=== PATIENT | male | born 1980 | race Caucasian/White ===

== ENCOUNTER 2016-03-06 15:30 | Emergency (ER) | payer SELFPAY ==
[2016-03-06] MEDS ORDERED: PROPARACAINE 0.5% OPHTH DROPS 15 ML ONE (16:37)
[2016-03-06] MEDS ORDERED: ERYTHROMYCIN OPHTH OINT 1 GM TUBE ONE (16:56)
[2016-03-06] MEDS ORDERED: PROPARACAINE 0.5% OPHTH DROPS 15 ML RIGHTEYE STA (17:00)
[2016-03-06] MEDS ORDERED: ERYTHROMYCIN OPHTH OINT 1 GM TUBE RIGHTEYE STA (17:01)
== END 2016-03-06 17:10 | disposition home or self-care (01) ==
DX: S05.01XA Injury of conjunctiva and corneal abrasion without foreign body, right eye, initial encounter (principal); X58.XXXA Exposure to other specified factors, initial encounter; F17.200 Nicotine dependence, unspecified, uncomplicated
CPT/HCPCS: 99283; J3490

== ENCOUNTER 2018-10-21 13:13 | Emergency (ER) | payer MEDICAID ==
[2018-10-21 13:28] VITALS: BP 127/97
--- NOTE | 2018-10-21 13:37 | ED Physician Documentation ---
PD HPI LOWER EXT INJURY - Stated complaint Stated Complaint: R ANKLE INJURY - Chief complaint Chief Complaint: Ext Problem - History obtained from History obtained from: Patient, Family - History of Present Illness PD HPI LOW EXT INJURY LOCATION: Right, Ankle Type of injury: Fall Where injury occurred: Home Timing - onset: Today Timing - duration: Minutes Timing - details: Abrupt onset, Still present Improved by: Rest, Ice, Immobilization Worsened by: Moving, Palpating Associated symptoms: Swelling. No: Weakness, Numbness Contributing factors: No: Anticoagulated Similar symptoms before: Has not had sx before Recently seen: Not recently seen - Additional information Additional information: 38 y/o male was up on a ladder about 5 feet when he fell landing on and twisting his right ankle. He has pain and swelling laterally and is unable to bear weight. Review of Systems Constitutional: denies: Fever Nose: denies: Congestion Respiratory: denies: Cough GI: denies: Vomiting PD PAST MEDICAL HISTORY - Past Surgical History Past Surgical History: No - Present Medications Home Medications: Ambulatory Orders Medication Instructions Recorded Confirmed HYDROcod/ACETAM 5/325 [[place] 5/325] 1 - 2 ea PO Q6H PRN #15 tablet 03/06/16 - Allergies Allergies/Adverse Reactions: Allergies Allergy/AdvReac Type Severity Reaction Status Date / Time No Known Drug Allergies Allergy Verified 03/06/16 15:49 - Social History Does the pt smoke?: Yes Smoking Status: Current every day smoker Does the pt drink ETOH?: No Does the pt have substance abuse?: No - Immunizations Immunizations are current?: Yes PD ED PE NORMAL - Vitals Vital signs reviewed: Yes (hypertensive) - General General: Alert and oriented X 3, No acute distress, Well developed/nourished - HEENT HEENT: Atraumatic, PERRL, EOMI - Respiratory Respiratory: No respiratory distress - Derm Derm: Normal color, Warm and dry, No rash - Extremities Extremities: Other (There is marked swelling to the lateral right ankle. There is swelling over the talofibular ligament there is no pain over the proximal fifth metatarsal or over the dorsal foot. Distal neurovascular components are intact and there is not much swelling or tenderness to the medial malleolus. There is no tenderness higher up on the fibula and no tenderness to the knee.) - Neuro Neuro: Alert and oriented X 3, management expert 2-12 intact, No motor deficit, No sensory deficit, Normal speech Eye Opening: Spontaneous Motor: Obeys Commands Verbal: Oriented GCS Score: 15 - Psych Psych: Normal mood, Normal affect Results - Vitals Vitals: Vital Signs - 24 hr 10/21/18 13:27 Temperature 36.3 C L Heart Rate 79 Respiratory 18 Rate Blood Pressure 127/97 H O2 Saturation 100 Oxygen O2 Source Room air PD MEDICAL DECISION MAKING - ED course Complexity details: reviewed results, re-evaluated patient, considered differential, d/w patient, d/w family ED course: 38 y/o male with a lot of swelling with an ankle sprain. He is placed into an ankle air cast and onto crutches. Departure - Departure Disposition: 01 Home, Self Care Clinical Impression: Right ankle sprain Qualifiers: Encounter type: initial encounter Involved ligament of ankle: calcaneofibular ligament Qualified Code(s): S93.411A - Sprain of calcaneofibular ligament of right ankle, initial encounter Condition: Stable Instructions: ED Sprain Ankle W X Ray Follow-Up: [facility] [Provider Group]
--- NOTE | 2018-10-21 14:10 | XRAY Report ---
Reason: r ankle pain, swelling, s/p fall Procedure Date: 10/21/2018 Accession Number: [id number] / [id number] Procedure: XR - Ankle 3 View RT CPT Code: FULL RESULT: EXAM: RIGHT ANKLE RADIOGRAPHY EXAM DATE: 10/21/2018 01:42 PM. CLINICAL HISTORY: Trauma with ankle pain. COMPARISON: None. TECHNIQUE: 3 views. FINDINGS: Bones: No acute fracture or suspicious osseous lesion. Joints: No significant joint space narrowing. Small tibiotalar joint effusion. No subluxations. The ankle mortise is normally aligned. Soft Tissues: Lateral malleolar soft tissue swelling. IMPRESSION: No acute osseous abnormality. [facility]
== END 2018-10-21 14:05 | disposition home or self-care (01) ==
LOC: ED 13:13
DX: S93.411A Sprain of calcaneofibular ligament of right ankle, initial encounter (principal); W11.XXXA Fall on and from ladder, initial encounter; Y92.009 Unspecified place in unspecified non-institutional (private) residence as the place of occurrence of the external cause; F17.200 Nicotine dependence, unspecified, uncomplicated
CPT/HCPCS: 99282; 99283